=== PATIENT | male | born 1945 | race African-American/Black ===

== ENCOUNTER 2018-06-11 11:59 | Inpatient (IN) | payer MEDICARE, OTHER ==
[~2018-06-11] VITALS: Ht 172.7 cm; Wt 90.7 kg
--- NOTE | 2018-06-11 12:00 | NUR ---
Dr richter at the bedside for MSE.
--- NOTE | 2018-06-11 12:11 | NUR ---
PT TAKES A PILL FOR HTN,BUT DOES NOT KOW WHICH PILL.
[2018-06-11 12:23] LABS: BASOPHILS % (AUTO) 0.6 % (0.0-2.0); EOSINOPHILS # (AUTO) 0.1 K/uL (0.0-0.7); EOSINOPHILS % (AUTO) 1.5 % (0.0-7.0); HEMATOCRIT 42.2 % (36.7-47.1); HEMOGLOBIN 13.8 g/dL (12.5-16.3); LYMPHOCYTES # (AUTO) 1.4 K/uL (20.0-40.0); LYMPHOCYTES % (AUTO) 21.1 % (20.5-51.5); MEAN CORPUSCULAR HEMOGLOBIN 27.8 uug (23.8-33.4); MEAN CORPUSCULAR HGB CONC 33 g/dL (32.5-36.3); MEAN CORPUSCULAR VOLUME 85.3 fL (73.0-96.2); MONOCYTES # (AUTO) 0.6 K/uL (2.0-10.0); MONOCYTES % (AUTO) 9.4 % (0.0-11.0); NEUTROPHILS # (AUTO) 4.4 K/uL (1.8-8.9); NEUTROPHILS % (AUTO) 67.4 % (38.5-71.5); PLATELET COUNT (AUTO) 275 K/uL (152-348); RED BLOOD CELL COUNT(AUTO) 4.96 MIL/uL (4.06-5.63); WHITE BLOOD COUNT (AUTO) 6.6 K/uL (3.6-10.2)
[2018-06-11 12:34] LABS: CARBON DIOXIDE 28 mmol/L (21-32); CHLORIDE 104 mmol/L (98-107); CREATININE 0.9 mg/dL (0.6-1.3); GLUCOSE 95 mg/dL (74-106); POTASSIUM 4.3 mmol/L (3.5-5.1); UREA NITROGEN, BLOOD 10 mg/dL (7-18)
[2018-06-11 12:38] LABS: ETHANOL < 3 MG/DL (0-0)
[2018-06-11 12:40] LABS: ALANINE AMINOTRANSFERASE 37 U/L (16-63); ALKALINE PHOSPHATASE 67 U/L (50-136); ASPARTATE AMINOTRANSFERASE 30 U/L (15-37); BILIRUBIN,DIRECT 0.1 mg/dL (0.0-0.2); BILIRUBIN,TOTAL 0.5 mg/dL (0.2-1.0); TOTAL PROTEIN, SERUM 7.7 g/dL (6.4-8.2)
--- NOTE | 2018-06-11 12:44 | NUR ---
Lunch provided, Pt ate w/ moderate appetite. No c/o pain.
[2018-06-11 12:45] LABS: ACETAMINOPHEN < 2.0 ug/mL (10-30)
--- NOTE | 2018-06-11 12:50 | NUR ---
Pt medically cleared by Dr richter.
[2018-06-11 12:52] LABS: *BILIRUBIN,URIN NEGATIVE (NEGATIVE); *BLOOD, URINE NEGATIVE (NEGATIVE); *CLARITY,URINE CLEAR (CLEAR); *COLOR,URINE YELLOW (YELLOW); *KETONES,URINE NEGATIVE (NEGATIVE); *UROBILINOGEN,URINE 0.2 E.U./dl (NORMAL); LEUKOCYTE ESTERASE ,URINE TRACE (NEGATIVE); NITRITE, URINE NEGATIVE (NEGATIVE); PH,URINE 7.5 (5.0-8.0); UGLUCOSE NEGATIVE (NEGATIVE)
[2018-06-11 13:05] LABS: SQUAMOUS EPITHELIAL CELL,UR FEW /HPF (NONE SEEN)
[2018-06-11 13:06] LABS: BACTERIA,URINE NONE SEEN /HPF (NONE SEEN); WBC,URINE 0-3 /HPF (0-3)
[2018-06-11] MEDS ORDERED: ATOR40TA PO (13:09)
[2018-06-11] MEDS ORDERED: ARIP5TAB10 PO (13:09)
--- NOTE | 2018-06-11 13:09 | NUR ---
CALLED [facility] PER PT REQUEST AND OBTAINED THE RECENT MED LIST. MED RECON UPDATED.
[2018-06-11 13:21] LABS: *AMPHETAMINE, URINE NEGATIVE (NEGATIVE); *BARBITURATE, URINE NEGATIVE (NEGATIVE); *CANNABINOID, URINE NEGATIVE (NEGATIVE); *COCCAINE, URINE NEGATIVE (NEGATIVE); *OPIATE, URINE NEGATIVE (NEGATIVE); *PHENCYCLIDINE SCREEN,URINE NEGATIVE (NEGATIVE)
--- NOTE | 2018-06-11 13:23 | NUR ---
Pt resting in bed, speaking on the phone. NAD noted. Awaiting for MHU bed availibility. Sample Grinder Triston aware as well as [facility] MHU battery charger.
--- NOTE | 2018-06-11 15:25 | NUR ---
Pt. admitted to 138B, under care of Dr. STEARNS/JADEN. Belongs List completed
[2018-06-11 16:00] VITALS: BP_SYST 115; BP_SYST 119; BP_DIAS 54; BP_DIAS 96
[2018-06-11] MEDS ORDERED: MAGNESIUM HYDROXIDE 30 ML LIQUID UDC PO PRN (16:45)
[2018-06-11] MEDS ORDERED: LORAZEPAM 0.5 MG TABLET PO PRN (16:45)
[2018-06-11] MEDS ORDERED: ACETAMINOPHEN 325 MG TABLET PO PRN (16:45)
[2018-06-11] MEDS ORDERED: TEMAZEPAM 7.5 MG CAPSULE PO PRN (16:45)
[2018-06-11] MEDS ORDERED: MAG HYDROX/AL HYDROX/SIMETH 30 ML LIQUID UDC PO PRN (16:45)
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
[2018-06-11 20:00] VITALS: BP 148/66
[2018-06-11] MEDS ORDERED: PNEUMOCOCCAL 23-VAL P-SAC VAC 0.5 ML VIAL IM ONE (20:45)
[2018-06-12 07:30] VITALS: BP 123/62
--- NOTE | 2018-06-12 12:08 | NUR ---
Discharge Planning Note: SW received call from pt's outpatient [facility] RN, Marvin Gamino ([phone]) who provided collateral information about the patient. Per Marvin, the patient receives services through the [facility] through [facility]. Marvin stated that the patient has started to decompensate after pt had begun to refuse PO meds. Per Marvin, the pt had previously agreed to long-acting IM in the past, and his outpatient Psychiatrist, Dr. Mike ([phone]) was going to start him on PO of meds to see how he tolerated it and then give him the IM. Marvin requested that Dr. Ramirez speak with Dr. Mike, and SW left a message to alert Dr. Ramirez of request. Marvin stated that pt's housing situation is stable, and that he will be able to return to his apartment upon discharge [[address], [place] [address]]. SW will continue to follow-up.
[2018-06-12 16:00] VITALS: BP 132/60
[2018-06-12] MEDS: risperiDONE-M 0.5 MG TAB.RAPDIS PO SCH (17:03)
[2018-06-12 20:00] VITALS: BP 159/61
[2018-06-12] MEDS: BENZTROPINE MESYLATE 0.5 MG TABLET PO SCH (20:24)
[2018-06-12] MEDS ORDERED: risperiDONE-M 0.5 MG TAB.RAPDIS PO SCH (21:00)
[2018-06-13 07:30] VITALS: BP 105/52
[2018-06-13] MEDS: risperiDONE-M 0.5 MG TAB.RAPDIS PO SCH ×3 (08:42→20:55)
--- NOTE | 2018-06-13 11:16 | NUR ---
WOUND CARE CONSULT PATIENT SEEN AND LEFT UPPER BACK EVALUATED. PLEASE SEE DIRECTOR INDUSTRIAL MUSEUM ASSESSMENT IN PCS FOR TODAY. RECOMMEND SURGICAL CONSULT, RECOMMEND CLEANSE WITH NS, PAT DRY, COVER WITH BANDAID DAILY AND PRN SOILING. PATIENT WITH SATYA AT 22, WILL SEE PRN.
--- NOTE | 2018-06-13 15:41 | NUR ---
Initial Discharge Instructions: Patient currently lives alone in his apartment [[address], [address] [place] [address]; [phone]]. Per pt, he would like to return home upon discharge. Spoke with pt's [facility] RN, Marvin ([phone]) who reports that he has been supporting the patient for quite some time and would like to see the patient return home as well. SW will continue to collaborate with pt, support system, and MD regarding most appropriate discharge plans. SW will form a safe and proper discharge plan.
[2018-06-13 16:00] VITALS: BP 129/67
[2018-06-13 20:16] VITALS: BP 118/60
[2018-06-13] MEDS: BENZTROPINE MESYLATE 0.5 MG TABLET PO SCH (20:54)
[2018-06-13] MEDS: ATORVASTATIN 40 MG TABLET PO SCH (20:55)
[2018-06-14 07:30] VITALS: BP 124/62
[2018-06-14] MEDS: risperiDONE-M 0.5 MG TAB.RAPDIS PO SCH ×3 (08:45→20:23)
[2018-06-14 16:36] VITALS: BP 158/79
[2018-06-14] MEDS: BENZTROPINE MESYLATE 0.5 MG TABLET PO SCH (20:22)
[2018-06-14] MEDS: ATORVASTATIN 40 MG TABLET PO SCH (20:23)
[2018-06-14 20:41] VITALS: BP 147/62
[2018-06-15 07:30] VITALS: BP 119/61
[2018-06-15] MEDS: risperiDONE-M 0.5 MG TAB.RAPDIS PO SCH ×3 (08:34→20:23)
[2018-06-15 16:36] VITALS: BP 120/67
[2018-06-15 20:21] VITALS: BP 133/73
[2018-06-15] MEDS: BENZTROPINE MESYLATE 0.5 MG TABLET PO SCH (20:22)
[2018-06-15] MEDS: ATORVASTATIN 40 MG TABLET PO SCH (20:23)
--- NOTE | 2018-06-15 22:34 | NUR ---
RECEIVED RESIDENT IN ACTIVITY ROOM INTERACTING WITH OTHER PEERS. PLEASANT UPON APPROACH AND DENIED ANY AH/VH.TOOK ALL MEDS WELL AND MADE NO C/O PAIN OR DISCOMFORT. WOUND ON LEFT SHOULDER CLEANED AND DRESSING APPLIED. WILL CONTINUE TO MONITOR.
--- NOTE | 2018-06-16 06:36 | NUR ---
COMPLIANT WITH MEDS.SLEPT FOR APPROX.7;30HRS
[2018-06-16 07:30] VITALS: BP 124/65
[2018-06-16] MEDS: risperiDONE-M 0.5 MG TAB.RAPDIS PO SCH ×3 (08:34→20:17)
--- NOTE | 2018-06-16 12:14 | NUR ---
Firearms Report: SW completed and submitted [employer] Firearms Report for DTO/GD certifications.
[2018-06-16 16:03] VITALS: BP 131/80
--- NOTE | 2018-06-16 16:06 | NUR ---
Social Work Process Group Note: GOAL: Patient will participate in the group discussion of the day or actively listen to other peers responses. INTERVENTION: Social Work Merchandiser Retail Representative invited patient to participate in a group discussion held from 2:00-2:45 pm in the activities room. Social Work Merchandiser Retail Representative facilitated a group discussion with patients. SW Merchandiser Retail Representative explored current activities patients practice to increase their physical, mental and emotional wellbeing. SW Merchandiser Retail Representative educated patients on mindfulness as an additional way to relax and be present. SW Merchandiser Retail Representative facilitated 3-minute mindfulness breathing exercise. RESPONSE: Patient expressed interest in participating in group discussion. Patient expressed that he likes to take short walks for his physical wellbeing and enjoys listening to Lutheran music to relax his mind and body. Patient stated that he enjoyed the breathing exercises. The patient was very respectful of his peers actively listening when they shared. Patient was quite pleasant and remained cooperative throughout discussion. PLAN: Patient will be invited to attend the next group discussion.
[2018-06-16 20:00] VITALS: BP 136/53
[2018-06-16] MEDS: ATORVASTATIN 40 MG TABLET PO SCH (20:16)
[2018-06-16] MEDS: BENZTROPINE MESYLATE 0.5 MG TABLET PO SCH (20:16)
[2018-06-17 07:30] VITALS: BP 107/62
[2018-06-17] MEDS: risperiDONE-M 0.5 MG TAB.RAPDIS PO SCH ×3 (08:19→20:26)
[2018-06-17 15:39] VITALS: BP 116/69
[2018-06-17] MEDS: ATORVASTATIN 40 MG TABLET PO SCH (20:26)
[2018-06-17] MEDS: BENZTROPINE MESYLATE 0.5 MG TABLET PO SCH (20:26)
[2018-06-17 20:43] VITALS: BP 130/54
[2018-06-17] MEDS ORDERED: risperiDONE-M 0.5 MG TAB.RAPDIS PO ONE (21:00)
[2018-06-18 07:30] VITALS: BP 125/64
--- NOTE | 2018-06-18 13:30 | NUR ---
Discharge Planning Note: SW attempted to contact patient's [facility] RN, Marvin Gamino ([phone]). There was no answer, and SW left a message for a return call. REBECCA will continue to follow-up.
[2018-06-18 16:00] VITALS: BP 129/63
[2018-06-18 19:56] VITALS: BP 146/67
[2018-06-18] MEDS: BENZTROPINE MESYLATE 0.5 MG TABLET PO SCH (20:35)
[2018-06-18] MEDS: ATORVASTATIN 40 MG TABLET PO SCH (20:35)
[2018-06-19 07:30] VITALS: BP 111/66
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
--- NOTE | 2018-06-19 10:58 | NUR ---
Discharge Planning Note: REBECCA attempted to contact patient's [facility] RN, Marvin Gamino ([phone]). There was no answer, and REBECCA left a message for a return call and informed RN that patient is planned to discharge tomorrow (06/20/18). SW will continue to follow-up. Addendum: 06/19/18 at 1405 by GRUPO GONZALEZ At 1300: REBECCA received call back from Pt's [facility] RN, Marvin Gamino ([phone]). Discussed discharge planning with him. Per RN, patient will continue to follow-up with his outpatient Psychiatrist, Dr. Mike through Tele[facility] this month. Per RN, he will follow-up with the patient this-coming Saturday (06/23/18) at the patient's home to ensure adequate support. RN requested that Continuation of Care Packet be faxed to his [facility] office (f. [phone]) to ensure continuity of care. REBECCA will fax discharge packet to RN and pt's outpatient Psych. RN also requested that written prescriptions be sent to pt's local pharmacy: [facility] (p. ). REBECCA alerted staff attorney regarding this. SW will continue to follow-up to ensure safe and proper discharge.
[2018-06-19 16:26] VITALS: BP 126/67
[2018-06-19] MEDS: BENZTROPINE MESYLATE 0.5 MG TABLET PO SCH (20:21)
[2018-06-19] MEDS: ATORVASTATIN 40 MG TABLET PO SCH (20:21)
[2018-06-19 20:58] VITALS: BP 124/60
--- NOTE | 2018-06-19 22:00 | NUR ---
received to care, isolative, but pleasant upon approach. compliant with medications and staff direction. as of 2299, he appears to be asleep. no distress noted. will continue to monitor closely.
[2018-06-20 07:30] VITALS: BP 133/66
--- NOTE | 2018-06-20 08:45 | NUR ---
DC NOTE: Patient will be discharged back home [[address], [address] [place] [address]; [phone]] via taxi at 11am. Please provide this patient with a taxi voucher. Spoke with patients Department of [facility], [facility] RN, Marvin Gamino ([phone]) who is aware and agreeable with discharge plans. Per Marvin, he will visit the patient at his house on Saturday, June 23, 2018 to ensure adequate support. Patient is alert and oriented x4 and is agreeable with discharge plan. Patient will continue to follow-up with his Primary Care Physician, Dr. Sharon Collado [Address: [id number] [place] [address]; ]. Patient will also continue to follow-up with his outpatient Psychiatrist through [facility], Dr. Mike [[address], [address] [place] [address]; [phone]]. Patient has a scheduled appointment with Dr. Mike this month (May) through Tele[facility]. Patient was provided with outpatient mental health resources to [facility] ([phone]), [facility] , [facility] , and the National Suicide Prevention Lifeline .
[2018-06-20] MEDS ORDERED: CLOTRIMAZOLE 1% CREAM 30 GM TUBE TOP SCH (09:00)
== END 2018-06-20 11:30 | disposition home or self-care (01) | DRG 885 ==
LOC: ER 11:59 → GPS 15:16
PROVIDERS: ADMIT Psychiatry & Neurology Psychosomatic Medicine; ATTEND Internal Medicine
PROC: 0HBRXZZ Excision of Toe Nail, External Approach (ICD-10-PCS; principal; 2018-06-19)
DX: F25.0 Schizoaffective disorder, bipolar type (principal); D68.59 Other primary thrombophilia; T81.31XA Disruption of external operation (surgical) wound, not elsewhere classified, initial encounter; E78.5 Hyperlipidemia, unspecified; B35.1 Tinea unguium; B35.3 Tinea pedis; E66.9 Obesity, unspecified; Z68.32 Body mass index [BMI] 32.0-32.9, adult; I10 Essential (primary) hypertension; Z74.09 Other reduced mobility
CPT/HCPCS: 36415; 71045; 80307; 85025; 90732; 93005; A4663; G0480; G0480-TC